=== PATIENT | male | born 1945 | race Caucasian/White ===

== ENCOUNTER 2016-10-28 04:27 | Emergency (ER) | payer MEDICARE, BC ==
[2016-09-08 09:58] VITALS: BMI 25.1
[~2016-10-28 04:27] MED LIST: ASPIRIN81 MG PO; BACLOFEN10 MG PO; CELEXA20 MG PO; CRESTOR10 MG PO; HUMULIN R100 U/ML SC; HYDROCODON-ACE1 EAC7 PO; LANTUS INSULIN10 ML SC; LISINOPRIL10 MG PO; MEGACE400 MG/10 PO; NORMODYNE / TR100 MG PO; PLAVIX75 MG PO
== END 2016-10-28 05:57 | disposition home or self-care (01) ==
LOC: D.ER 04:27
DX: I10 Essential (primary) hypertension (principal); E11.9 Type 2 diabetes mellitus without complications; I45.10 Unspecified right bundle-branch block

== ENCOUNTER → 2016-11-16 09:43 | Outpatient (CLI) | payer MEDICARE, BC ==
[2016-09-08 09:58] VITALS: BMI 25.1
== END | disposition home or self-care (01) ==
LOC: D.CT 09:43
DX: M75.100 Unspecified rotator cuff tear or rupture of unspecified shoulder, not specified as traumatic (principal); I10 Essential (primary) hypertension; E11.9 Type 2 diabetes mellitus without complications

== ENCOUNTER → 2017-02-02 15:41 | Outpatient (CLI) | payer MEDICARE, BC ==
[2016-09-08 09:58] VITALS: BMI 25.1
== END | disposition home or self-care (01) ==
LOC: D.US 15:41
DX: R60.0 Localized edema (principal)